=== PATIENT | female | born 1970 | race Two or more races ===

== ENCOUNTER → 2024-09-23 | Outpatient (CLI) | payer MEDICAID, SELFPAY ==
--- NOTE | 2024-09-23 09:00 | XR_ITS ---
Examination: Breast ultrasound complete, bilateral Date and time of exam: September 23, 2024 0915 hours INDICATIONS: Right breast sonogram May 16, 2020 right breast 2:00 mass 12 x 7 mm Technique: Real-time grayscale ultrasonographic imaging bilateral breasts, including all 4 quadrants as well as nipple retroareolar and axillary regions. Findings: Sonographic images right breast 2:00 mass 11 x 12 mm with breast biopsy marker Adjacent 2:00 masses 6 x 8 mm, 10 x 7 mm Sonographic images left breast 12:00 cyst 7 x 7 mm 4:00 cyst 13 x 13 mm 4:00 mass 13 x 7 mm lobular margins 3:00 nodule circumscribed 15 x 11 mm IMPRESSION: BI-RADS Category 3: Probably benign findings Six-month continued bilateral breast sonography follow-up strongly advised
--- NOTE | 2024-09-23 10:00 | XR_ITS ---
Examination: Diagnostic digital mammography, bilateral Computer aided detection 3-D breast Tomosynthesis, bilateral Date and time of exam: September 23, 2024 1004 hours Compared to mammograms dating to January 23, 2016 INDICATIONS: Numerous calcifications right breast, 11 mm nodule 2 to 3:00 position right breast on mammogram September 01, 2019 Technique: Nonmagnified MLO, CC views of the breasts to been obtained, reconstructed from 3-D Tomosynthesis images. R2 computer aided detection program utilized for evaluation of suspicious masses and/or abnormal calcifications. 3-D Tomosynthesis images obtained. Findings: The breasts are heterogeneously dense, which may obscure small masses 11:00 nodule right breast with breast biopsy marker More numerous microcalcifications upper outer right breast anterior depth Numerous bilateral calcifications Impression: BI-RADS Category 0: Incomplete: Need additional imaging evaluation Recommend magnification spot compression films of calcifications upper outer right breast anterior depth as well as bilateral breast sonography to complete the workup.
== END | disposition home or self-care (01) ==
LOC: CDIM 08:56
PROVIDERS: PCP Internal Medicine; Referring Provider Internal Medicine; Visit Provider Internal Medicine
DX: R92.0 Mammographic microcalcification found on diagnostic imaging of breast (principal); N63.25 Unspecified lump in the left breast, overlapping quadrants; N63.23 Unspecified lump in the left breast, lower outer quadrant; N63.12 Unspecified lump in the right breast, upper inner quadrant
CPT/HCPCS: 76641; 77062; 77066; G0279

== ENCOUNTER 2025-02-28 15:04 | Emergency (ER) | payer MEDICAID, SELFPAY ==
[2025-02-28 15:05] VITALS: BMI 27.8
[2025-02-28 15:14] VITALS: BP 124/82; PULSE 80; RESP 18; TEMP 36.6; O2SAT 94
--- NOTE | 2025-02-28 15:21 | XR_ITS ---
Examination: CT brain head without contrast. 2-D sagittal coronal reconstructions Date and time of exam: February 28, 2025, 1601 hours INDICATIONS: Onset right-sided facial droop beginning 3 days ago CTDI: vol (mGy): 46.2 DLP: (mGycm): 946 Technique: Multiple CT axial sections of the brain have been obtained, 5 mm slice thickness. Contrast has not been administered. 2-D sagittal, coronal reconstructions have been obtained Low dose protocols were performed. One or more of the following dose reduction techniques were used; automated exposure control, adjustment of the mA and/or KV according to patient size, use of iterative reconstruction technique. Findings: No significant ventricular enlargement. Intra-axial or extra-axial hemorrhage density is not seen. No mass effect or midline shift Basal cisterns are not remarkable. Fourth ventricle is midline. Cranial vault intact. Impression: Negative for acute hemorrhage, mass effect or midline shift As clinically warranted, brain MRI follow-up would best assess for demyelinating disease, acute ischemic change
--- NOTE | 2025-02-28 15:22 | PD.EDRME ---
Rapid Medical Screening Exam [facility] Arrival date/time: 02/28/25 15:04 54-year-old female with a history of type 2 diabetes, hyperlipidemia, presents to the emergency room with a chief complaint right-sided facial droop and a headache x 3 days. Patient denies any unilateral numbness I have greeted and performed a focused initial assessment of this patient. A comprehensive ED assessment and evaluation of the patient, analysis of all test results, and completion of the medical decision making process will be conducted by additional ED providers. Chief Complaint: Neuro Symptoms/Deficit Time Seen by Provider: 02/28/25 15:15 Vital signs: Vital Signs Temperature 97.8 F 02/28/25 15:14 Pulse Rate 80 02/28/25 15:14 Respiratory Rate 18 02/28/25 15:14 Blood Pressure 124/82 02/28/25 15:14 Pulse Oximetry (%) 94 L 02/28/25 15:14 Oxygen Delivery Method Room Air 02/28/25 15:14 Vital signs reviewed by provider: Yes Exam: Patient is a GCS 15 alert and oriented x 3 pupils are PERRLA EOMs are intact Patient has numbness to cranial nerve VII, right-sided facial droop, sensation is intact Clinical Impression: Guzman's palsy/CVA
[2025-02-28 16:05] LABS: Basophils # (Auto) 0.0 Thou/mm3 (0.0-0.2); Basophils % (Auto) 0 % (0-2.5); Eosinophils # (Auto) 0.1 Thou/mm3 (0.0-0.5); Eosinophils % (Auto) 1 % (0-10); Hematocrit 43.8 % (36.0-46.0); Hemoglobin 14.4 g/dL (12.0-16.0); Immature Granulocytes Auto 0.03 Thou/mm3 (0.00-0.00); Lymphocytes # (Auto) 2.5 Thou/mm3 (1.0-4.8); Lymphocytes % (Auto) 28 % (10-50); Mean Corpuscular HGB Conc 32.9 g/dl (31.0-37.0); Mean Corpuscular Hemoglobin 31.3 pg (25.0-35.0); Mean Corpuscular Volume 95 fL (80-100); Monocytes # (Auto) 0.7 Thou/mm3 (0.0-0.8); Monocytes % (Auto) 7 % (0-12); Neutrophils # (Auto) 5.9 Thou/mm3 (1.8-7.7); Neutrophils % (Auto) 64 % (37-80); Nucleated Red Blood Cell # 0.00 Thou/mm3 (0.00-0.00); Nucleated Red Blood Cell % 0 /100 WBC (0); Platelet Count 286 Thou/mm3 (140-440); RDW Standard Deviation 40.8 fL (36.4-46.3); Red Blood Count 4.60 Miln/mm3 (4.00-5.20); White Blood Count 9.2 Thou/mm3 (3.6-11.0)
[2025-02-28 16:25] LABS: INR 1.0 (0.9-1.3); Partial Thromboplastin Time 26.9 Seconds (22.0-36.0); Prothrombin Time 10.5 Seconds (9.0-12.2)
[2025-02-28 16:31] LABS: Alanine Aminotransferase 14 U/L (10-49); Albumin, Serum 4.7 gm/dL (3.5-5.0); Albumin/Globulin Ratio 2.0 (1.2-2.2); Alkaline Phosphatase 62 U/L (46-116); Anion Gap 10 (7-16); Aspartate Amino Transferase 17 U/L (0-34); BUN/Creatinine Ratio 20 Ratio (12-20); Bilirubin,Total 0.5 mg/dL (0.3-1.2); Blood Urea Nitrogen 14 mg/dL (9-23); Calcium 9.5 mg/dL (8.3-10.6); Calcium (Corrected) 9.5 mg/dL (8.5-10.1); Carbon Dioxide 27.6 mMol/L (20.0-31.0); Chloride 101 mMol/L (98-107); Creatinine (Component) 0.7 mg/dL (0.6-1.3); Estimated Creatinine Clearance 92.3 mL/min (>60); Globulin 2.4 gm/dL (2.3-3.5); Glucose 325 mg/dL (74-106); Osmolality,Calculated 291 (275-295); Potassium 4.3 mMol/L (3.4-5.1); Sodium 139 mMol/L (136-145); Total Protein 7.1 gm/dL (5.7-8.2); eGFR > 60 See Note
[2025-02-28 17:39] VITALS: BP 132/84; PULSE 69; RESP 18; TEMP 36.7; O2SAT 99
--- NOTE | 2025-02-28 18:36 | PD.EDNEURO ---
Neuro Symptoms Deficit-RME/HPI General Chief Complaint: Neuro Symptoms/Deficit Stated Complaint: RAMON/RIGHT SIDE WEKNESS FOR 3 DAYS Time Seen by Provider: 02/28/25 15:15 Arrival date/time: 02/28/25 15:04 RME / HPI RME / HPI Narrative: 02/28/25 15:04 54-year-old female with a history of type 2 diabetes, hyperlipidemia, presents to the emergency room with a chief complaint right-sided facial droop and a headache x 3 days. Patient denies any unilateral numbness I have greeted and performed a focused initial assessment of this patient. A comprehensive ED assessment and evaluation of the patient, analysis of all test results, and completion of the medical decision making process will be conducted by additional ED providers. DR. FRANCO MAIN ED EVALUATION: Patient referred to ED by PMD for right-sided facial weakness, approximately 48 hours, notes difficulty closing right eyelid and facial asymmetry. No confusion, lateralizing or motor disturbance. PMH: Type II DM PSH: x2 Allergies: None Social: Non-smoker, Non-drinker, No illicit drug abuse Exam: Patient is a GCS 15 alert and oriented x 3 pupils are PERRLA EOMs are intact Patient has numbness to cranial nerve VII, right-sided facial droop, sensation is intact Impression: Guzman's palsy/CVA Related Data Home Medications ?Medication ?Instructions ?Recorded ?Confirmed glimepiride 1 mg tablet 1 mg PO QDAY 05/16/20 05/16/20 lovastatin 20 mg tablet 20 mg PO QDAY 05/16/20 05/16/20 metformin 1,000 mg tablet 1,000 mg PO BID 05/16/20 05/16/20 sitagliptin phosphate 100 mg 100 mg PO QDAY 05/16/20 05/16/20 tablet (Januvia) Previous Rx's ?Medication ?Instructions ?Recorded acetaminophen 500 mg tablet 500 mg PO QID PRN fever #30 tabs 12/12/19 (Tylenol Extra Strength) albuterol sulfate 90 mcg/actuation 1 puff inhalation QID PRN 12/12/19 aerosol inhaler (ProAir HFA) shortness of breath or wheezing #6.7 grams Allergies Allergy/AdvReac Type Severity Reaction Status Date / Time No Known Allergies Allergy Verified 02/28/25 15:08 Review of Systems Review of Systems Systems Reviewed: All systems reviewed, normal except as documented Past Medical History Past Medical History ENDOCRINE: Positive Endocrine Disorders and Diabetes Mellitus Type 2 Surgical History SURGICAL: Positive Section (X2) ED Exam Narrative Physical exam: GEN. APPEARANCE: The patient is alert awake oriented X-3 under no distress, lying down comfortably, does not look ill/toxic, with right-facial droop. Patient has good eye contact. Patient is cooperative. VITALS: All vitals were reviewed and the pulse ox is 99%, which is normal according to my interpretation HEENT: Normocephalic, atraumatic and nontender. Pupils are equal and reactive. Oral mucosa is moist. NECK: Supple, nontender, no meningismus, no JVD. There is no thyromegaly and no lymphadenopathy. CHEST: Nontender on palpation no deformity and no crepitus. CARDIOVASCULAR: Heart regular rhythm, no murmur or gallop rub or extra beats. LUNGS: Clear to auscultation bilaterally with symmetrical chest rise. No laboring tachypnea or wheezing. No intercostal subcostal retraction. No rales and no rhonchi. ABDOMEN: Soft, flat, nontender to palpation, no guarding or rebound tenderness. There are no abnormal masses palpated. No pulsatile masses or bruits. Active and normal bowel sounds. EXTREMITIES: Normal inspection and palpation. No edema. No cyanosis. Patient is able to move all 4 extremities well SKIN: Warm and dry, no rashes noted. MUSCULOSKELETAL: No lumbar or midline bony tenderness. There is no CVA tenderness. No paraspinal muscle spasm or tenderness. NEURO: Cranial nerves II through XII grossly intact, with the exception of peripheral right cranial nerve VII dense deficit, also occular motor nerve deficit, and lid lag on the right. GCS is 15 PSYCHIATRIC: Patient is in normal mood and affect, cooperative. LYMPHATICS: No major lymphadenopathy noted. Course Quality Measures none Orders Category Date Time Status CT head/brain wo con Stat Exams 02/28/25 15:21 Completed CBC Stat Lab 02/28/25 15:38 Completed Comprehensive Metabolic Panel Stat Lab 02/28/25 15:38 Completed Partial Thromboplastin Time Stat Lab 02/28/25 15:38 Completed Prothrombin Time with INR Stat Lab 02/28/25 15:38 Completed Acyclovir [Zovirax] Med 02/28/25 18:46 Discontinued 800 mg PO X1 ONE predniSONE Med 02/28/25 18:46 Discontinued 60 mg PO X1 ONE Vital Signs Vital signs: Vital Signs Temperature 97.8 F 02/28/25 15:14 Pulse Rate 80 02/28/25 15:14 Respiratory Rate 18 02/28/25 15:14 Blood Pressure 124/82 02/28/25 15:14 Pulse Oximetry (%) 94 L 02/28/25 15:14 Oxygen Delivery Method Room Air 02/28/25 15:14 Neuro Symptoms / Deficit MDM Narrative MDM Narrative:: Scribe Attestation: I, Justine Joshi, am scribing for and in the presence of Dr. Franco. Provider Notation: Although this document has been carefully reviewed, there may still be some phonetic and other typographical errors. These errors are purely grammatical due to imperfections in the software program and should not be construed in any way to compromise the substance of the patient's medical care during this visit. Patient referred to ED by PMD for right-sided facial weakness, approximately 48 hours, notes difficulty closing right eyelid and facial asymmetry. No confusion, lateralizing or motor disturbance. Please see PE findings. Presentation classic for acute Guzman's Palsy. Will initiate ant-viral and steroid, in addition to Lacrolube. Will discharge home with precautionary instructions issued, with intended F/U with PMD in 5-7 days for referral to neurology. Emphasis on occular lubrication. Patient data External records reviewed:: [facility] previous records (No recent ED records available for review) Clinical information provided by:: patient Social determinants that could affect healthcare access:: none Patient has the following chronic illnesses:: Type II DM How is presenting disease/condition affected by chronic disease/condition?: exacerbated by Evaluation data The following diagnostics were reviewed and interpreted by me:: lab results and radiology exam(s) Lab and/or radiology exams considered but not ordered:: None Interpretation Summary: RADIOLOGY Head/Brain CT: Findings: No significant ventricular enlargement. Intra-axial or extra-axial hemorrhage density is not seen. No mass effect or midline shift Basal cisterns are not remarkable. Fourth ventricle is midline. Cranial vault intact. Impression: Negative for acute hemorrhage, mass effect or midline shift As clinically warranted, brain MRI follow-up would best assess for demyelinating disease, acute ischemic change Medications / Prescriptions Medications or Prescriptions considered but not ordered:: None Medication administrations:: Medication Administration History Discontinued Medications Acyclovir (Acyclovir 800 Mg Tablet) 800 mg PO X1 ONE Stop: 02/28/25 18:47 Prednisone (Prednisone 20 Mg Tablet) 60 mg PO X1 ONE Stop: 02/28/25 18:47 See above if any Consultations Consultation(s) initiated? (list below): No Diagnosis Neuro Differential Diagnosis: peripheral neuropathy, cerebrovascular accident, transient cerebral ischemia and other (Guzman's Palsy) Most likely diagnosis given after review of the tests above:: Guzman's palsy Admission Indicated Admission indicated?: not indicated Explain why admission is indicated or not indicated:: Patient does not meet admission criteria Admission Request Was there a request for admission?: No Disposition Plan Disposition Plan: Discharge Discharge Attestation Discharge Attestation: The patient and all family members were given an opportunity to ask questions and understood the discharge instructions. Discharge instructions specifically effects, indications for sooner follow up or return to the emergency department, and the expected course of current diagnosis. Patient condition: Stable Discharge Plan Plan Patient Disposition: HOME (Self Care) Prescriptions/Referrals Prescriptions/Med Rec: No Action acetaminophen [Tylenol Extra Strength] 500 mg tablet 500 mg PO QID PRN (Reason: fever) Qty: 30 0RF albuterol sulfate [ProAir HFA] 90 mcg/actuation HFA aerosol inhaler 1 puff IH QID PRN (Reason: shortness of breath or wheezing) Qty: 6.7 0RF glimepiride 1 mg tablet 1 mg PO QDAY metformin 1,000 mg tablet 1,000 mg PO BID lovastatin 20 mg tablet 20 mg PO QDAY Januvia 100 mg tablet 100 mg PO QDAY Referrals: Ck Morse MD [Primary Care Provider, Family Practice] - In 1 week Problem List Clinical Impression: Guzman's palsy Patient/Caregiver Discharge Instructions Print Language: Khmer Stand Alone Forms: Fior Award Info., Patient Portal Info Letter
[2025-02-28] MEDS: ACYCLOVIR 800 MG TABLET PO (19:19)
[2025-02-28 20:13] VITALS: BP 124/78; PULSE 70; RESP 18; TEMP 36.8; O2SAT 97
== END 2025-02-28 20:25 | disposition home or self-care (01) ==
PROVIDERS: Nurse Practitioner Family; Emergency Provider Emergency Medicine; PCP Family Medicine
DX: G51.0 Bell's palsy (principal); E11.9 Type 2 diabetes mellitus without complications; E78.5 Hyperlipidemia, unspecified; Z79.84 Long term (current) use of oral hypoglycemic drugs
CPT/HCPCS: 36415; 70450; 80053; 85025; 85610; 85730; 99283; J7512; A9270